=== PATIENT | female | born 1945 | race Caucasian/White ===

== ENCOUNTER → 2018-05-21 | Outpatient (CLI) | payer MEDICARE, OTHER ==
[~2018-05-21] MED LIST: ASPIRIN325 PO; CALCIUM 600 +1 EAC1 PO; CENTRUM SILVER1 EAC4 PO; COLACE100 MG PO; FISH OIL 1,2001 EAC4 PO; FOLIC ACID 40400 MCG PO; LOTREL 5-20 MG1 EACH PO; NORCO 5-325 TA1 EACH PO; OXYCODONE HCL 55 MG PO; VITAMIN B-1100 M1 PO; WAL-MUCIL0.52 GM PO; XARELTO10 MG PO
== END ==
LOC: M.RAD 10:26
DX: S39.92XA Unspecified injury of lower back, initial encounter (principal); M47.816 Spondylosis without myelopathy or radiculopathy, lumbar region; M41.84 Other forms of scoliosis, thoracic region; M46.06 Spinal enthesopathy, lumbar region; I10 Essential (primary) hypertension; E78.5 Hyperlipidemia, unspecified; X58.XXXA Exposure to other specified factors, initial encounter; Y93.89 Activity, other specified; Y92.89 Other specified places as the place of occurrence of the external cause; Y99.8 Other external cause status; Z88.2 Allergy status to sulfonamides

== ENCOUNTER 2020-01-15 16:02 | Emergency (ER) | payer MEDICARE ==
[~2020-01-15] VITALS: Ht 157.5 cm; Wt 59.4 kg
[2020-01-15] MEDS ORDERED: NORVASC 2.5 MG2.5 M1 PO (16:11)
[2020-01-15 16:56] LABS: ABSOLUTE BASOPHILS 0.1 thou/uL (0.0-0.2); ABSOLUTE LYMPHOCYTES 1.7 thou/uL (0.8-5.3); ABSOLUTE MONOCYTES 0.5 thou/uL (0.0-1.2); ABSOLUTE NEUTROPHILS 4.2 thou/uL (1.6-8.1); EOSINOPHILS 0.2 %; HEMATOCRIT 35.6 % (37.0-47.0); HEMOGLOBIN 12.2 gm/dL (12.0-15.0); LYMPHOCYTES 25.9 %; MCH 32.7 pg (26.0-34.0); MCHC 34.4 g/dL (28.0-37.0); MONOCYTES 7.2 %; NUCLEATED RBCS 0 /100WBC; PLATELET COUNT* 310 thou/uL (150-400); POLYS 65.7 %; RBC 3.75 mil/uL (4.20-5.00); RDW-CV 14.7 % (10.5-14.5); WBC 6.4 thou/uL (4.0-11.0)
[2020-01-15 17:05] LABS: CALCIUM 8.6 mg/dL (8.5-10.1); CREATININE 0.7 mg/dL (0.6-1.3); POTASSIUM 4.3 mmol/L (3.5-5.1)
[2020-01-15 17:10] LABS: ALBUMIN 3.7 g/dL (3.4-5.0); TOTAL BILIRUBIN 0.3 mg/dL (<0.1-1.0); TOTAL PROTEIN 6.8 g/dL (6.4-8.2)
[2020-01-15 18:04] LABS: URINE BILIRUBIN NEGATIVE (Negative); URINE BLOOD NEGATIVE (Negative); URINE CLARITY CLEAR; URINE COLOR YELLOW; URINE GLUCOSE-RANDOM NEGATIVE (Negative); URINE KETONES NEGATIVE (Negative); URINE LEUKOCYTES-REFLEX NEGATIVE (Negative); URINE NITRITE-REFLEX NEGATIVE (Negative); URINE PROTEIN NEGATIVE (Negative); URINE SPECIFIC GRAVITY 1.025 (1.005-1.030); URINE UROBILINOGEN 0.2 E.U./dl (0.2-1.0)
[2020-01-15 18:22] VITALS: BP 123/78
--- NOTE | 2020-01-16 14:12 | EKG ---
[place] [address] ELECTROCARDIOGRAM REPORT Name: QUINN PAYNE Room: [facility]#: [id number] Admission: 01/15/20 Attend Phys: Discharge: 01/15/20 Date of : 41 Date of Service: 01/15/20 1614 Report #: [id number] THIS REPORT FOR: //name// [facility] ED Test Date: 2020-01-15 Test Time: 16:14:17 Pat Name: QUINN PAYNE Department: Room: Gender: F Senior Bi Developer: : 1945 Requested By: Jessica Tavarez Order Number: [id number] MD: Kenji Wheeler Measurements Intervals [place] Rate: 78 P: 74 ND: 141 QRS: 14 QRSD: 84 T: 42 QT: 392 QTc: 447 Interpretive Statements Sinus rhythm Low voltage, extremity leads Compared to ECG 09/22/2014 10:13:01 Low QRS voltage now present Electronically Signed On 01-16-2020 14:11:32 CDT by Kenji Wheeler [email or web address] <ELECTRONICALLY SIGNED> By: Kenji Wheeler MD, [facility] 01/16/20 1411 1614 1614 Kenji Wheeler MD, [facility] /EPI
== END 2020-01-15 18:22 | disposition home or self-care (01) ==
LOC: M.ERS 16:02
PROVIDERS: Personal Emergency Response Attendant
DX: G45.9 Transient cerebral ischemic attack, unspecified (principal); I10 Essential (primary) hypertension; Z88.2 Allergy status to sulfonamides; Z86.711 Personal history of pulmonary embolism; Z90.89 Acquired absence of other organs; Z90.710 Acquired absence of both cervix and uterus; Z90.49 Acquired absence of other specified parts of digestive tract